=== PATIENT | female | born 1985 | race Caucasian/White ===

== ENCOUNTER 2020-10-05 10:13 | Emergency (ER) | payer MEDICAID, OTHER, SELFPAY ==
[~2020-10-05] VITALS: Ht 170.2 cm; Wt 132.9 kg
[2020-10-05 10:16] VITALS: BP 130/96
[2020-10-05] MEDS ORDERED: LIDOCAINE-MPF 1%, 5ML ONE ×2 (10:42→11:12)
--- NOTE | 2020-10-05 10:47 | NUR ---
PT IS A 35F WHO LACERATED HER LEFT THUMB WHILE TRYING TO CUT AN AVOCADO 30 MIN AGO. PT STATES PAIN IS 8/10. PROVIDER AT BEDSIDE FOR EVAL. LAC NUMBED WITH LIDOCAINE. CALL LIGHT WITHIN REACH.
[2020-10-05] MEDS ORDERED: DIPH,PERTUSS(ACELL),TET VAC/PF 0.5 ML IM-VACC ONE ×2 (10:54→11:30)
[2020-10-05] MEDS ORDERED: LIDOCAINE-MPF 1%, 5ML INFIL ONE (11:30)
--- NOTE | 2020-10-05 12:04 | NUR ---
Patient/Caregiver given discharge instructions and they have confirmed that they understand the instructions. Patient ambulatory with steady gait.
== END 2020-10-05 12:06 | disposition home or self-care (01) ==
LOC: ED 11:54
DX: S61.012A Laceration without foreign body of left thumb without damage to nail, initial encounter (principal); Z87.891 Personal history of nicotine dependence; Z90.49 Acquired absence of other specified parts of digestive tract; W26.0XXA Contact with knife, initial encounter; Y93.89 Activity, other specified; Y92.098 Other place in other non-institutional residence as the place of occurrence of the external cause; Y99.8 Other external cause status
CPT/HCPCS: 12041; 90471; 90715; 99284